=== PATIENT | female | born 1950 | race Caucasian/White ===

== ENCOUNTER 2017-07-12 12:21 | Emergency (ER) | payer MEDICAID, OTHER ==
[~2017-07-12] VITALS: Ht 152.4 cm; Wt 58.0 kg
[~2017-07-12 12:21] MED LIST: AMLO5TAB2 PO; BISM262O20 PO; HYDR120S6 PO; OMEP-110 PO
[2017-07-12 12:22] VITALS: BP 151/79
== END 2017-07-12 12:53 | disposition home or self-care (01) ==
LOC: ED 12:40
DX: H11.31 Conjunctival hemorrhage, right eye (principal); I10 Essential (primary) hypertension; M19.90 Unspecified osteoarthritis, unspecified site
CPT/HCPCS: 99282

== ENCOUNTER 2018-11-19 21:56 | Observation (INO) | payer OTHER ==
[~2018-11-19] VITALS: Ht 144.8 cm; Wt 55.0 kg
[2018-11-20 12:15] VITALS: BP 154/82
== END 2018-11-20 18:52 | disposition home or self-care (01) ==
LOC: ED 11-20 → INTOOBSV 11-20 00:11 → EDIP 11-20 00:11 → 4EST 11-20 02:20
PROVIDERS: ADMIT Internal Medicine; ATTEND Internal Medicine
DX: R07.89 Other chest pain (principal); I12.9 Hypertensive chronic kidney disease with stage 1 through stage 4 chronic kidney disease, or unspecified chronic kidney disease; N18.3 Chronic kidney disease, stage 3 (moderate); D50.9 Iron deficiency anemia, unspecified; E55.9 Vitamin D deficiency, unspecified; R60.0 Localized edema; Z79.82 Long term (current) use of aspirin; Z79.899 Other long term (current) drug therapy; Z91.14 Patient's other noncompliance with medication regimen; Z96.612 Presence of left artificial shoulder joint; Z96.651 Presence of right artificial knee joint; Z98.84 Bariatric surgery status; Z82.3 Family history of stroke; Z81.8 Family history of other mental and behavioral disorders
CPT/HCPCS: 36415; 71045; 78452; 80053; 81001; 82306; 82607; 82728; 83036; 83540; 83550; 83735; 83880; 84436; 84439; 84443; 84466; 84484; 85025; 87077; 87086; 87186; 93005; 93017; 93306; 96372; 96374; 99284; A9502; C9898; G0378; J1644; J1756; J2785

== ENCOUNTER 2019-05-08 15:38 | Emergency (ER) | payer OTHER ==
[~2019-05-08] VITALS: Ht 152.4 cm; Wt 55.0 kg
[~2019-05-08 15:38] MED LIST changes: +AMLO-150 PO; -AMLO5TAB2 PO; +ASPI-650 PO; +CHOL2000 PO; +FERR-51 PO; +HYDR25TA6 PO; +IBUP-1222 PO; +LORA-247 PO; +LOSA50TA14 PO; +ONDA4TAB13 PO
[2019-05-08 15:51] VITALS: BP 161/71
[2019-05-08] MEDS ORDERED: DIAZEPAM 5 MG TABLET ONE (16:07)
[2019-05-08] MEDS ORDERED: KETOROLAC 30 MG/1 ML ONE (16:07)
[2019-05-08] MEDS ORDERED: OXYcodone/APAP 5/325MG TABLET ONE (16:07)
[2019-05-08] MEDS ORDERED: KETOROLAC 30 MG/1 ML IM ONE (16:30)
[2019-05-08] MEDS ORDERED: OXYcodone/APAP 5/325MG TABLET PO ONE (16:30)
[2019-05-08] MEDS ORDERED: DIAZEPAM 5 MG TABLET PO ONE (16:30)
== END 2019-05-08 16:56 | disposition home or self-care (01) ==
LOC: ED 16:50
DX: S16.1XXA Strain of muscle, fascia and tendon at neck level, initial encounter (principal); G24.3 Spasmodic torticollis; I10 Essential (primary) hypertension; X58.XXXA Exposure to other specified factors, initial encounter; Y93.89 Activity, other specified; Y92.89 Other specified places as the place of occurrence of the external cause; Y99.8 Other external cause status
CPT/HCPCS: 72125; 96372; 99284; J1885